=== PATIENT | male | born 1955 | race Caucasian/White ===

== ENCOUNTER 2019-03-23 13:56 | Emergency (ER) | payer OTHER ==
[2019-03-23 14:11] VITALS: BP 141/89
--- NOTE | 2019-03-23 14:28 | ER Document Report ---
ED Medical Screen (RME) - General Chief Complaint: Testicular Swelling Stated Complaint: GROIN PAIN Time Seen by Provider: 03/23/19 14:26 Mode of Arrival: Ambulatory Information source: Patient Notes: 63-year-old male presented to ED for complaint of a painful enlarged right scrotum. He states he has a history of a hydrocele that was drained and close to read ago but they told him that if it came back he would have to be more surgery done. He is alert oriented respirations regular and unlabored speaking in full sentences walks with a even steady gait. He is a [employer] on disability. 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 I have greeted and performed a rapid initial assessment of this patient. A comprehensive ED assessment and evaluation of the patient, analysis of test results and completion of medical decision making process will be conducted by an additional ED providers. Dictation of this chart was performed using voice recognition software; therefore, there may be some unintended grammatical errors. - Related Data Allergies/Adverse Reactions: No Known Allergies Allergy (Verified 03/23/19 14:01) Physical Exam - Vital signs Vitals: Temp Pulse Resp BP Pulse Ox 97.2 F 81 17 141/89 H 93 03/23/19 14:09 03/23/19 14:09 03/23/19 14:09 03/23/19 14:09 03/23/19 14:09 Course - Vital Signs Vital signs: Temp Pulse Resp BP Pulse Ox 97.2 F 81 17 141/89 H 93 03/23/19 14:09 03/23/19 14:09 03/23/19 14:09 03/23/19 14:09 03/23/19 14:09
--- NOTE | 2019-03-23 17:35 | RADIOLOGY REPORT (SQ) ---
EXAM DESCRIPTION: U/S SCROTUM W/DOPPLER COMPLETED DATE/TIME: 03/23/2019 5:03 pm REASON FOR STUDY: Right enlarged scrotum history hydrocele COMPARISON: None. TECHNIQUE: Static and realtime hanna scale imaging of the scrotum and testes. Selected color Doppler and spectral images recorded to document blood flow. LIMITATIONS: None. FINDINGS: RIGHT: TESTICLE: Normal size measuring 3.8 x 2.6 x 2.5 cm. Normal echotexture. Normal blood flow. 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 EPIDIDYMIS: The epididymis is completely replaced by cystic change. HYDROCELE OR VARICOCELE: Large right hydrocele measuring at least 7.4 cm. HERNIA OR EXTRA-TESTICULAR MASS: No. OTHER: No other significant finding. LEFT: TESTICLE: Normal size measuring 4.5 x 2.5 x 3.2 cm. Normal echotexture. Normal blood flow. There is ectasia of the rete testis and multiple simple appearing internal cyst. EPIDIDYMIS: The epididymis is completely replaced by cystic change. HYDROCELE OR VARICOCELE: No. HERNIA OR EXTRA-TESTICULAR MASS: No. OTHER: No other significant finding. IMPRESSION: 1. Large right hydrocele measuring at least 7.4 cm. 2. The bilateral epididymides are completely replaced by cystic change and there is ectasia of the r ete testes with multiple simple appearing internal cysts of the bilateral testicles. These findings are of uncertain significance although may be related to prior or chronic infection or inflammation. No evidence of discrete mass. TECHNICAL DOCUMENTATION: JOB ID: [id number] [employer]- All Rights Reserved Reading location - IP/workstation name: [email or web address]
[2019-03-23] MEDS ORDERED: AZITHROMYCIN 250 MG TABLET PO ONE (18:05)
[2019-03-23] MEDS ORDERED: CEFTRIAXONE INJ 250 MG VIAL IM ONE (18:05)
--- NOTE | 2019-03-23 18:11 | ER Document Report ---
ED GI/ - General Chief Complaint: Testicular Swelling Stated Complaint: GROIN PAIN Time Seen by Provider: 03/23/19 14:26 Mode of Arrival: Ambulatory Notes: Patient is a 63-year-old male presents to the emergency department for right testicular swelling and a rash noted to his penis. Patient states approximately 5 months ago he was in [facility]. States at that point time he was told he had fluid in his right testicle. States they drained it as an inpatient office. States he was told that should the swelling return he may need surgery. Patient states the swelling has slowly increased over the last 5 months. States he noticed a generalized rash on the distal aspect of his penis which is why he presents to the emergency department. Patient's denying any penile discharge but is admitting to unprotected sexual activity recently. Patient is denying any dysuria, abdominal pain, fevers. - Related Data Allergies/Adverse Reactions: No Known Allergies Allergy (Verified 03/23/19 14:01) Past Medical History - General Information source: Patient - Social History Smoking Status: Never Smoker Chew tobacco use (# tins/day): No Frequency of alcohol use: Heavy Drug Abuse: Marijuana Family History: Reviewed & Not Pertinent Patient has suicidal ideation: No Patient has homicidal ideation: No Renal/ Medical History: Denies: Hx Peritoneal Dialysis Review of Systems - Review of Systems Constitutional: denies: Fever EENT: No symptoms reported Cardiovascular: No symptoms reported Respiratory: No symptoms reported Gastrointestinal: See HPI Genitourinary: See HPI Male Genitourinary: See HPI Musculoskeletal: No symptoms reported Skin: See HPI Hematologic/Lymphatic: No symptoms reported Neurological/Psychological: No symptoms reported Physical Exam - Vital signs Vitals: Temp Pulse Resp BP Pulse Ox 97.2 F 81 17 141/89 H 93 03/23/19 14:09 03/23/19 14:09 03/23/19 14:09 03/23/19 14:09 03/23/19 14:09 - Notes Notes: GENERAL: Alert, interacts well. No acute distress. HEAD: Normocephalic, atraumatic. EYES: Pupils equal, round, and reactive to light. Extraocular movements intact. ENT: Oral mucosa moist, tongue midline. NECK: Full range of motion. Supple. Trachea midline. LUNGS: Clear to auscultation bilaterally, no wheezes, rales, or rhonchi. No respiratory distress. HEART: Regular rate and rhythm. No murmur ABDOMEN: Soft, non-tender. Non-distended. Bowel sounds present in all 4 quadrants. EXTREMITIES: Moves all 4 extremities spontaneously. No edema, normal radial and dorsalis pedis pulses bilaterally. No cyanosis. BACK: no cervical, thoracic, lumbar midline tenderness. No saddle anesthesia, normal distal neurovascular exam. NEUROLOGICAL: Alert and oriented x3. Normal speech. cranial nerves II through XII grossly intact PSYCH: Normal affect, normal mood. SKIN: Warm, dry, normal turgor. No rashes or lesions noted. Genitalia: [employer], right testicle noted to be swollen, nonerythematous. Dry beefy red rash noted distal aspect of penis near circumcision area. Circumcised penis noted no active discharge at the meatus. Left testicle within normal limits nonerythematous, nonswollen, nontender. Course - Re-evaluation Re-evalutation: 03/23/19 18:09 Scrotum Ultrasound 03/23/19 14:26 IMPRESSION: 1. Large right hydrocele measuring at least 7.4 cm. 2. The bilateral epididymides are completely replaced by cystic change and there is ectasia of the rete testes with multiple simple appearing internal cysts of the bilateral testicles. These findings are of uncertain significance although may be related to prior or chronic infection or inflammation. No evidence of discrete mass. Patient's urine was collected for gonorrhea and chlamydia. Patient was prophylactically treated for both. Discussed patient's rash does appear to be yeast in nature. Will treat with nystatin. Discussed close follow-up with urology for continued care. At this time will discharge with return precautions and follow-up recommendations. Verbal discharge instructions given a the bedside and opportunity for questions given. Medication warnings reviewed. Patient is in agreement with this plan and has verbalized understanding of return precautions and the need for primary care follow-up in the next 24-72 hours. This medical record was dictated with voice recognizing software. There may be grammatical, syntax errors that are unintended. - Vital Signs Vital signs: Temp Pulse Resp BP Pulse Ox 97.2 F 81 17 141/89 H 93 03/23/19 14:09 03/23/19 14:09 03/23/19 14:09 03/23/19 14:03/23/19 14:09 Discharge - Discharge Clinical Impression: Yeast dermatitis of penis Hydrocele Qualifiers: Hydrocele type: unspecified Qualified Code(s): N43.3 - Hydrocele, unspecified Condition: Stable Disposition: HOME, SELF-CARE Instructions: Hydrocele ([facility]) Additional Instructions: As we discussed you have been seen and treated in the emergency department for a hydrocele. This is fluid collection in your right testicle. He will also be treated with a topical cream called nystatin. This is for the generalized rash noted to your penis. You should follow-up with urology for continued care of your hydrocele. Phone numbers will be provided in this packet. Please return to the emergency room for any further concerns. Prescriptions: Nystatin [Mycostatin Cream 15 gm] 1 applic TP BID #15 gm Referrals: NICOLE BARNES MD [NO LOCAL MD] - Follow up as needed
[2019-03-23] MEDS ORDERED: LIDOCAINE 1% INJ-PF (10 MG/ML) 30 ML SDV ONE (18:13)
[2019-03-23 18:17] LABS: APPEARANCE,URINE CLEAR; BILIRUBIN,URINE NEGATIVE (NEGATIVE); COLOR,URINE YELLOW; GLUCOSE, URINE NEGATIVE (NEGATIVE); KETONES,URINE 20 mg/dL (NEGATIVE); LEUKOCYTE ESTERASE,URINE NEGATIVE (NEGATIVE); NITRITE,URINE NEGATIVE (NEGATIVE); PROTEIN,URINE NEGATIVE (NEGATIVE); URINE SPECIFIC GRAVITY 1.015; UROBILINOGEN,URINE NEGATIVE mg/dL (<2.0)
[2019-03-23 19:51] LABS: CHLAM PCR NOT DETECTED (NOT DETECT)
== END 2019-03-23 18:40 | disposition home or self-care (01) ==
LOC: ER 13:56
DX: B37.49 Other urogenital candidiasis (principal); N43.3 Hydrocele, unspecified; N50.89 Other specified disorders of the male genital organs; R21 Rash and other nonspecific skin eruption
CPT/HCPCS: 99284; 96372; 87086; 81001; 87491; 87591; 76870; 93976; J3490; J0696